=== PATIENT | male | born 1945 | race Caucasian/White ===

== ENCOUNTER 2021-11-07 21:35 | Emergency (ER) | payer OTHER ==
[~2021-11-07] VITALS: Ht 185.4 cm; Wt 77.8 kg
--- NOTE | ~2021-11-07 | EKG ---
[facility] [address] [facility] [place], [place] [address] Draft EKG completed, results pending confirmation PATIENT NAME: TAYLER DIETRICH Electrocardiogram DATE OF : 45 PHYSICIAN: PRELIMINARY REPORT #: [id number] REPORT IS CONFIDENTIAL AND NOT TO BE RELEASED WITHOUT AUTHORIZATION
[2021-11-07] MEDS ORDERED: POTASSIUM CHLO10 ME1 PO (23:03)
[2021-11-07] MEDS ORDERED: LASIX20 MG PO (23:03)
== END 2021-11-07 23:30 | disposition home or self-care (01) ==
LOC: ED 21:35
DX: I11.0 Hypertensive heart disease with heart failure (principal); I50.9 Heart failure, unspecified; Z20.822 Contact with and (suspected) exposure to COVID-19
CPT/HCPCS: 36415; 71045; 80053; 83735; 83880; 84484; 85025; 87502; 93005; 93010; 96374; 99285-25; A9270; C9803; J1940; U0003

== ENCOUNTER 2023-01-17 14:37 | Emergency (ER) | payer MEDICARE, OTHER ==
[~2023-01-17] VITALS: Ht 185.4 cm; Wt 77.6 kg
[~2023-01-17 14:37] MED LIST: LASIX20 MG PO; POTASSIUM CHLO10 ME1 PO
[2023-01-17 14:58] LABS: BILIRUBIN, URINE NEGATIVE (negative); BLOOD/HGB, URINE NEGATIVE (Negative); KETONE, URINE NEGATIVE (Negative); LEUK ESTERASE, URINE NEGATIVE (negative); NITRITE, URINE NEGATIVE (negative)
[2023-01-17 14:59] LABS: BASOPHILS 0.4 % (0-2); EOSINOPHILS 4.9 % (0-6); HEMATOCRIT 45.5 % (35.0-50.0); HEMOGLOBIN 15.5 g/dL (12.0-18.0); LYMPHOCYTES 5.7 % (24-44); MCH 30.4 (27-36); MCHC 34.1 g/dl (30-36); MCV 89.1 fl (81-99); MONOCYTES 13.4 % (0-12); NEUTROPHILS 75.6 % (39-80); PLATELET COUNT 296 K/uL (140-440); RBC 5.11 M/ul (4.3-5.7); RDW 14.6 (10.5-15.0)
[2023-01-17 15:14] LABS: ALBUMIN 3.7 g/dL (3.4-5.0); ALBUMIN/GLOBULIN RATIO 0.97 (1.1-2.4); ANION GAP 11.9 (7-21); BILIRUBIN, TOTAL 0.6 ng/dL (0.2-1.0); BUN/CREATININE RATIO 17.64 (6.0-28.6); CALCIUM 8.9 mg/dL (8.5-10.1); CREATININE, SERUM 0.85 mg/dL (0.70-1.30); POTASSIUM 4.9 mmol/L (3.5-5.1); PROTEIN, TOTAL 7.5 g/dL (6.4-8.2)
[2023-01-17 17:31] VITALS: BP 122/69
== END 2023-01-17 17:33 | disposition home or self-care (01) ==
LOC: ED 14:37
PROVIDERS: Emergency Medicine
DX: R10.31 Right lower quadrant pain (principal); I72.3 Aneurysm of iliac artery; K40.90 Unilateral inguinal hernia, without obstruction or gangrene, not specified as recurrent; K86.2 Cyst of pancreas; I10 Essential (primary) hypertension
CPT/HCPCS: 36415; 74177; 80053; 81003; 83690; 85025; Q9967

== ENCOUNTER 2023-03-10 06:53 | Day surgery (SDC) | payer MEDICARE, OTHER ==
[2023-03-03 15:40] VITALS: BP 134/76
[~2023-03-10] VITALS: Ht 185.4 cm; Wt 78.9 kg
--- NOTE | 2023-03-10 07:35 | NUR ---
DS ROUNDS. 15 MINTUES. PT EVIDENCED SITUATIONALLY CONGRUENT RESPONSES; CONSENTED TO PRAYER. PROVIDED HOSPITALITY. NORMALIZED PT EXPERIENCE. FACILITATED STORY TELLING. PROVIDED PRAYER. PT REACTED TEARFULLY BUT DENIED FURTHER NEEDS.
[2023-03-10 08:20] VITALS: BP 135/77
--- NOTE | 2023-03-10 12:00 | NUR ---
03/10/23 Asha Flor 1118- PT PRESENTS TO PACU, SUPINE POSITION. NON REACTIVE TO STIMULUS, OPA IN PLACE, REQUIRING JAW LIFT TO MANAGE AIRWAY. O2 AT 6L PER MASK, LR INFUSING TO LW IV. ABD SOFT, DRESSING IN PLACE TO RIGHT GROIN, CDI. ALL MONITORS IN PLACE. 1121- ICE PACK PLACED TO SURGICAL SITE. 1124- PT REACTIVE TO VERBAL, TACTILE STIMULUS. FOLLOWS COMMANDS TO OPEN MOUTH, OPA REMOVED, PT COUGHING AND MOVING MUCUS. PT ABLE TO CLEAR OWN AIRWAY. O2 REMAINS IN PLACE AT THIS TIME. 1126- PT MOVED TO ROOM AIR AT THIS TIME. PT IS AWAKE BUT DROWSY. DENIES PAIN OR NAUSEA. C/O DRY MOUTH. PT CONTINUES TO HAVE COUGHING EPISODES. 1129- PT REMAINS AWAKE, WATER PROVIDED AT THIS TIME. TOLERATING WELL, REPORTS HELPING WITH COUGHING FROM DRYNESS. 1132- PT C/O FEELING HUNGRY, APPLESAUCE GIVEN AT THIS TIME. TOLERATING WELL. 1150- PT BACK TO DAY SURGERY, VITAL SIGNS STABLE. LR INFUSING TO LW IV. DRESSING IN PLACE WITH ICE TO SURGICAL SITE, DRESSING CDI. PT ALERT AND ORIENTED, NO SIGNS OF DISTRESS. DENIES PAIN AND NAUSEA. PT MAINTAINING SATS ON ROOM AIR. REPORT TO CHUCKIE DICKENS AT BEDSIDE, CARE OF PT TURNED OVER AT THIS TIME.
[2023-03-10] MEDS ORDERED: HYDROCODON-ACE1 EAC8 PO (12:05)
--- NOTE | 2023-03-10 12:24 | NUR ---
1150: PT RETURNS TO UNIT VIA STRETCHER FROM PACU. AWAKE AND ALERT ON ARRIVAL. VSS, RESP EVEN AND UNLABORED. HOWARD PO INTAKE AND DENIES PAIN. DRESSING C/D/I. SCDS IN PLACE. ICE WATER REPLENISHED AND PUDDING PROVIDED. POC DISCUSSED AND PT AGREEABLE. NO NEEDS VOICED, CALL LIGHT WITHIN REACH
[2023-03-10 13:04] VITALS: BP 133/67
--- NOTE | 2023-03-10 13:09 | NUR ---
VS CHECKED. PATIENT DENIES PAIN. TOLERATED APPLESAUCE. LUNCH ORDERED FOR PATIENT. CALL LIGHT WITHIN REACH.
--- NOTE | 2023-03-10 13:58 | NUR ---
PATIENT TOLERATED LUNCH. ASSISTED OOB AND TO STAND. GAIT STEADY. PATIENT DRESSED INDEPENDENTLY. INCREASED PAIN WHILE GETTING DRESSED. ONE TAB OF NORCO GIVEN FOR PAIN.
[2023-03-10 14:17] VITALS: BP 121/70
--- NOTE | 2023-03-11 07:34 | OR ---
[facility] [address] [place], [place] [address] Signed DATE OF OPERATION: 03/10/2023 SURGEON: Taylor Taylor MD PREOPERATIVE DIAGNOSIS: Moderate-sized reducible right inguinal hernia. POSTOPERATIVE DIAGNOSIS: Moderate size reducible direct right inguinal hernia. PROCEDURES: Right Bassini inguinal herniorrhaphy. ESTIMATED BLOOD LOSS: None. INDICATIONS: Tayler is a 77-year-old gentleman, asked to see me for a moderate sized but reducible right inguinal hernia. 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 He had also been in [facility] recently. He said at least nine months ago he realized he had a hernia while he was carrying some paper towels and toilet paper across the compound and stepped in a hole. He said it has been getting larger in the last nine months. The [facility] was looking at having it repaired, but then he was released from [facility]. He went to establish with his primary care provider. He was asked to see me as a local general surgeon. He is at his ideal body weight and lives independently. He said he remains active. He said the hernia has been bothering him on a daily basis. In the office, he certainly had a reducible right inguinal hernia. Both testicles and spermatic cords were unremarkable. I gave him our brochure in the office on hernias. We went through a page by page. He understands the nature of an inguinal hernia. We reviewed the difference between a primary suture repair and a mesh repair. We reviewed the expected intraop and postop course. There is risk including, but not limited to bleeding, infection, scarring, change in contour of the skin, damage to the nerves, ischemic orchitis, recurrent hernias and chronic pain. He had expressed understanding and wished to proceed. PROCEDURE IN DETAIL: I had met with Tayler in our preop area. We both agreed on the right groin and we marked it appropriately. In fact, it was easy to see his hernia, even lying in the supine position. Our anesthesia provider provided a groin block in the preop area. After this, Tayler was taken into the operating room and placed in a supine position Electronically Signed By: TAYLOR TAYLOR MD 03/11/23 0734 PATIENT NAME: TAYLER DIETRICH OPERATIVE REPORT DATE OF : 45 REPORT #: [id number] PHYSICIAN: TAYLOR TAYLOR MD PCP: CONNIE RAMOS REPORT IS CONFIDENTIAL AND NOT TO BE RELEASED WITHOUT AUTHORIZATION [facility] [address] [place] [id number] Signed under general endotracheal tube anesthesia. He had been given subcutaneous heparin afterwards along with his SCDs. He was then prepped and draped in the usual sterile fashion. A standard oblique incision was made in the right groin and carried down through the tissue bluntly and with the cautery. The external oblique fascia was opened along its length and developed medially and laterally. The ilioinguinal iliohypogastric nerves were visualized and protected throughout the case. The cord structures were then elevated to the level of pubic tubercle. We could easily see he had a moderate sized but reducible direct inguinal hernia starting at the pubic tubercle up to the deep ring. We examined the anteromedial side of his cord structures at the level of deep ring and did not find any indirect component. We grabbed his conjoined tendon with Allis clamps and brought it over the ilioinguinal ligament without any tension whatsoever given his age and his overall functional status, we decided that primary suture repair would be more than sufficient. We used #1 Prolene interrupted stitches starting at the pubic tubercle to bring the conjoined tendon over to the ilioinguinal ligament all the way up to the deep ring. I could just fit the tip of my index finger into the beginning of the deep ring. This gave great repair of his direct and indirect spaces. After this, we injected some local anesthetic into the operative field. The wound was irrigated and suctioned out until clear. We closed the external oblique fascia over the repair with a running 2-0 PDS suture. We then closed Mery's fascia with a running 3-0 Monocryl suture. The dermis was reapproximated with interrupted 3-0 subcuticular Monocryl sutures. The skin edges were reapproximated a running 5-0 fast absorbing plain gut suture. Dry gauze and tape were then applied. Tayler was awakened from his anesthesia, extubated in the OR, and taken to recovery room in stable condition. Taylor Taylor MD [facility]/MOD[facility] /[id number] cc: [facility] Electronically Signed By: TAYLOR TAYLOR MD 03/11/23 0734 PATIENT NAME: TAYLER DIETRICH OPERATIVE REPORT DATE OF : 45 REPORT #: [id number] PHYSICIAN: TAYLOR TAYLOR MD PCP: CONNIE RAMOS REPORT IS CONFIDENTIAL AND NOT TO BE RELEASED WITHOUT AUTHORIZATION [address] [place], [place] [address] Signed Copies: TAYLOR TAYLOR MD ~ Electronically Signed By: TAYLOR TAYLOR MD 03/11/23 0734 PATIENT NAME: TAYLER DIETRICH OPERATIVE REPORT DATE OF : 45 REPORT #: [id number] PHYSICIAN: TAYLOR TAYLOR MD PCP: CONNIE RAMSO REPORT IS CONFIDENTIAL AND NOT TO BE RELEASED WITHOUT AUTHORIZATION
== END 2023-03-10 14:25 | disposition home or self-care (01) ==
LOC: DS 06:53
PROVIDERS: ATTEND Colon & Rectal Surgery
PROC: 0YQ50ZZ Repair Right Inguinal Region, Open Approach (ICD-10-PCS; principal; 2023-03-10 09:15)
DX: K40.90 Unilateral inguinal hernia, without obstruction or gangrene, not specified as recurrent (principal); F17.200 Nicotine dependence, unspecified, uncomplicated
CPT/HCPCS: 76942; J0131; J0690; J1100; J1644; J2001; J2405; J2704; J2795; J3010; J3490; J7121

== ENCOUNTER 2024-01-31 09:46 | Emergency (ER) | payer MEDICARE, OTHER ==
[~2024-01-31] VITALS: Ht 185.4 cm; Wt 73.7 kg
[~2024-01-31 09:46] MED LIST changes: +ASPIRIN81 MG PO; +ATORVASTATIN CA40 MG PO; +CLOPIDOGREL75 MG PO; +HYDROCODON-ACE1 EAC8 PO; +ONDANSETRON ODT8 MG PO
[2024-01-31] MEDS ORDERED: ACETAMINOPHEN 325 MG TAB PO ONE (10:15)
[2024-01-31 10:17] LABS: HEMATOCRIT 45.8 % (35.0-50.0); HEMOGLOBIN 15.7 g/dL (12.0-18.0); MCH 31.1 (27-36); MCHC 34.2 g/dl (30-36); MCV 90.8 fl (81-99); PLATELET COUNT 266 K/uL (140-440); RBC 5.04 M/ul (4.3-5.7); RDW 15.1 (10.5-15.0)
[2024-01-31 10:32] LABS: ALBUMIN 3.6 g/dL (3.4-5.0); ALBUMIN/GLOBULIN RATIO 0.92 (1.1-2.4); ANION GAP 13.7 (7-21); BILIRUBIN, TOTAL 0.9 ng/dL (0.2-1.0); BUN/CREATININE RATIO 14.58 (6.0-28.6); CALCIUM 9.1 mg/dL (8.5-10.1); CREATININE, SERUM 0.96 mg/dL (0.70-1.30); POTASSIUM 3.7 mmol/L (3.5-5.1); PROTEIN, TOTAL 7.5 g/dL (6.4-8.2)
[2024-01-31 10:37] LABS: BILIRUBIN, URINE NEGATIVE (negative); BLOOD/HGB, URINE NEGATIVE (Negative); KETONE, URINE NEGATIVE (Negative); LEUK ESTERASE, URINE NEGATIVE (negative); NITRITE, URINE NEGATIVE (negative); PH, URINE 6.5 (5-7)
[2024-01-31 10:49] LABS: BANDS, MANUAL DIFF 7; LYMPHOCYTES, MANUAL DIFF 3; MONOCYTES, MANUAL DIFF 12; NEUTROPHILS, MANUAL DIFF 78
[2024-01-31 10:51] LABS: INFLUENZA B NAA NEGATIVE (NEGATIVE); RESPIRATORY SYNCYTIAL VIR NAA NEGATIVE (NEGATIVE)
[2024-01-31 13:28] VITALS: BP 138/72
--- NOTE | 2024-02-03 14:36 | EKG ---
[facility] [address] [facility] [place] [address] Signed Normal sinus rhythm Low voltage QRS Septal infarct , age undetermined Abnormal ECG When compared with ECG of 18-OCT-2023 14:47, Septal infarct is now present Confirmed by Dakotah Cano MD ([id number]) on 02/03/2024 2:36:37 PM Electronically Signed By: DAKOTAH CANO DO 02/03/24 1436 PATIENT NAME: KAURTAYLER LINETTE Electrocardiogram DATE OF : 45 PHYSICIAN: DAKOTAH CANO DO REPORT #: [id number] REPORT IS CONFIDENTIAL AND NOT TO BE RELEASED WITHOUT AUTHORIZATION
== END 2024-01-31 13:25 | disposition home or self-care (01) ==
LOC: ED 09:46
PROVIDERS: Emergency Medicine
DX: K52.9 Noninfective gastroenteritis and colitis, unspecified (principal); I10 Essential (primary) hypertension; Z79.82 Long term (current) use of aspirin; Z79.899 Other long term (current) drug therapy; Z11.52 Encounter for screening for COVID-19
CPT/HCPCS: 36415; 70450; 80053; 81003; 83605; 83690; 83735; 84484; 85025; 85651; 86140; 87502; 93005; 93010; 97161; 99284-25; A9270; U0002

== ENCOUNTER 2024-08-27 13:07 | Emergency (ER) | payer MEDICARE, OTHER ==
[~2024-08-27] VITALS: Ht 185.4 cm; Wt 68.0 kg
[2024-08-27] MEDS ORDERED: NITROGLYCERIN 0.4 MG SUBL SL PRN (13:15)
[2024-08-27] MEDS ORDERED: ASPIRIN 81 MG CHEW PO ONE ×2 (13:15→14:00)
[2024-08-27] MEDS ORDERED: LATANOPROST2.5 ML OPTH (13:18)
[2024-08-27] MEDS ORDERED: DORZOLAMIDE HCL10 ML OD (13:18)
[2024-08-27] MEDS ORDERED: COMBIGAN EYE DRO5 ML OD (13:18)
[2024-08-27] MEDS ORDERED: ASPIRIN 325 MG TAB PO ONE (13:30)
[2024-08-27 13:32] LABS: BASOPHILS 0.6 % (0.2-1.2); EOSINOPHILS 5.7 % (0.8-7.0); HEMATOCRIT 45.5 % (40.1-51.0); HEMOGLOBIN 15.4 g/dL (13.7-17.5); LYMPHOCYTES 6.5 % (21.8-53.1); MCH 30.5 PG (25.7-32.2); MCHC 33.8 g/dL (32.3-36.5); MCV 90.1 fL (79.0-92.2); MONOCYTES 14.7 % (5.3-12.2); NEUTROPHILS 72.4 % (34.0-67.9); PLATELET COUNT 256 K/uL (163-337); RBC 5.05 M/uL (4.63-6.08)
[2024-08-27 13:52] LABS: ALBUMIN 3.6 g/dL (3.4-5.0); ALBUMIN/GLOBULIN RATIO 0.97 (1.1-2.4); ANION GAP 13.9 (7-21); BILIRUBIN, TOTAL 0.7 mg/dL (0.2-1.0); BUN/CREATININE RATIO 20.25 (6.0-28.6); CALCIUM 8.8 mg/dL (8.5-10.1); CREATININE, SERUM 0.79 mg/dL (0.70-1.30); MAGNESIUM 2.3 mg/dL (1.8-2.4); POTASSIUM 3.9 mmol/L (3.5-5.1); PROTEIN, TOTAL 7.3 g/dL (6.4-8.2)
[2024-08-27 16:12] VITALS: BP 133/69
--- NOTE | 2024-08-27 21:40 | EKG ---
[facility] [address] [facility] [place] [address] Signed Sinus rhythm with premature supraventricular complexes Low voltage QRS Borderline ECG When compared with ECG of 31-JAN-2024 10:28, premature supraventricular complexes are now present Criteria for Septal infarct are no longer present Confirmed by Kareem López MD () on 08/27/2024 9:40:18 PM Electronically Signed By: KAREEM LÓPEZ MD 08/27/24 2140 PATIENT NAME: TAYLER DIETRICH Electrocardiogram DATE OF : 45 PHYSICIAN: KAREEM LÓPEZ MD REPORT #: [id number] REPORT IS CONFIDENTIAL AND NOT TO BE RELEASED WITHOUT AUTHORIZATION
== END 2024-08-27 16:12 | disposition home or self-care (01) ==
LOC: ED 13:07
PROVIDERS: Emergency Medicine
DX: R07.81 Pleurodynia (principal); I10 Essential (primary) hypertension; Z79.899 Other long term (current) drug therapy
CPT/HCPCS: 36415; 71045; 71260; 80053; 83735; 84484; 85025; 93005; 93010; 99284-25; A9270; Q9967

== ENCOUNTER 2024-10-23 16:37 | Emergency (ER) | payer MEDICARE, OTHER ==
[~2024-10-23] VITALS: Ht 185.4 cm; Wt 68.0 kg
[~2024-10-23 16:37] MED LIST changes: +COMBIGAN EYE DRO5 ML OD; +DORZOLAMIDE HCL10 ML OD; +LATANOPROST2.5 ML OPTH
[2024-10-23] MEDS ORDERED: METOPROLOL SUCC50 MG PO (16:50)
[2024-10-23] MEDS ORDERED: ATORVASTATIN CA80 MG PO (16:50)
[2024-10-23] MEDS ORDERED: NITROGLYCERIN0.4 MG SL (16:50)
[2024-10-23] MEDS ORDERED: LOSARTAN POTASS25 MG PO (16:50)
[2024-10-23] MEDS ORDERED: BRILINTA90 MG PO (16:50)
[2024-10-23] MEDS ORDERED: ELIQUIS5 MG PO (16:50)
[2024-10-23 16:52] LABS: BASOPHILS 0.6 % (0.2-1.2); EOSINOPHILS 2.7 % (0.8-7.0); LYMPHOCYTES 3.5 % (21.8-53.1); MCH 30.6 PG (25.7-32.2); MCHC 34.3 g/dL (32.3-36.5); MCV 89.1 fL (79.0-92.2); MONOCYTES 13.7 % (5.3-12.2); NEUTROPHILS 78.9 % (34.0-67.9); RBC 5.16 M/uL (4.63-6.08)
[2024-10-23 17:09] LABS: ALT (SGPT) 24.0 U/L (14-59); AST (SGOT) 17.0 U/L (15-37); GLOMERULAR FILTRATION RATE,EST 65.0 mL/min (>60); PROTEIN, TOTAL 8.0 g/dL (6.4-8.2); UREA NITROGEN 28.0 mg/dL (7-18)
[2024-10-23 18:29] VITALS: BP 116/56
--- NOTE | 2024-10-23 22:20 | EKG ---
[facility] [address] [facility] [place] [address] Signed Sinus rhythm with premature atrial complexes with aberrant conduction Left axis deviation Abnormal ECG When compared with ECG of 27-AUG-2024 13:06, T wave inversion now evident in Inferior leads Confirmed by Kareem López MD () on 10/23/2024 10:19:49 PM Electronically Signed By: KAREEM LÓPEZ MD 10/23/242219 PATIENT NAME: TAYLER DIETRICH Electrocardiogram DATE OF : 45 PHYSICIAN: KAREEM LÓPEZ MD REPORT #: [id number] REPORT IS CONFIDENTIAL AND NOT TO BE RELEASED WITHOUT AUTHORIZATION
== END 2024-10-23 18:46 | disposition home or self-care (01) ==
LOC: ED 16:37
PROVIDERS: Emergency Medicine
DX: R07.9 Chest pain, unspecified (principal); I10 Essential (primary) hypertension; Z79.82 Long term (current) use of aspirin
CPT/HCPCS: 36415; 71045; 80053; 83735; 84484; 85025; 93005; 93010; 99285-25